=== PATIENT | female | born 1975 | race Caucasian/White ===

== ENCOUNTER 2017-11-13 20:43 | Emergency (ER) | payer OTHER ==
--- NOTE | 2017-11-13 20:49 | PDOC ---
History of Present Illness - General History Source: Patient Exam Limitations: No Limitations - History of Present Illness Initial Comments: 11/13/17 21:30 The patient is a 42 year old female with a significant PMH of endometriosis, diabetes, sinus tachycardia, hypertension, GERD and seasonal allergies who presents to the emergency department with a headache for 4 days. The patient report that she has been taking ibuprofen for her headache. She reports that her headache waxes and wanes. She reports that the last time she took medication was about 5 hours ago. The patient reports that she has associated neck pain and minimal nausea. The patient also reports a subjective fever. She denies any chest pain, shortness of breath, or dizziness. She denies any ever, chills, vomiting, diarrhea or constipation. She denies any urinary symptoms. The patient denies any other complaints. It is noted that the patient has a neuro appointment 1 month from now. PAST MEDICAL HISTORY: endometriosis, diabetes, sinus tachycardia, hypertension , GERD and seasonal allergies PAST SURGICAL HISTORY: sinus sx FAMILY HISTORY: no pertinent history SOCIAL HISTORY: Pt lives with family and is employed. MEDICATIONS: reviewed ALLERGIES: As per nursing notes General: (+) fevers. No chills, no weakness, no weight loss HEENT: No change in vision. No sore throat,. No ear pain CardioVascular: No chest pain or shortness of breath Respiratory:No cough, or wheezing. Gastrointestinal: no nausea, vomiting, diarrhea or constipation, No rectal bleeding Genitourinary: No dysuria, hematuria, or frequency Musculoskeletal: No joint or muscle pain or swelling Neurologic: (+) headache. No vertigo, dizziness or loss of consciousness Psychiatric: nor depression Skin: No rashes or easy bruising Endocrine: no increased thirst or abnormal weight change Allergic: no skin or latex allergy All other systems reviewed and normal General: (+) tenderness on percussion and palpation to head bilaterally. Well- nourished well-developed individual, no acute distress HEENT: Throat: Normal, tonsils normal, no erythema or exudate Neck: Supple, no meningeal signs, no lymphadenopathy Eyes::Pupils equal reactive and round, extraocular motion intact Chest: Nontender to palpation Cardiac: S1-S2 normal, regular rate and rhythm, no murmurs rubs or gallops Respiratory: Lungs clear to auscultation bilateral Extremities: Warm, dry, no cyanosis, clubbing, or edema Skin: No rashes Neuro: Alert and oriented x3, nonfocal exam, grossly intact, normal gait Psych: Normal mood and affect <Liyah Hayes - Last Filed: 11/13/17 21:30> - General History Source: Patient Exam Limitations: No Limitations - History of Present Illness Initial Comments: 11/13/17 21:00 A portion of this note was documented by scribe services under my direction. I have reviewed the details of the note, within reason, and agree with the documentation. The case summary and management plan written by me. Medical decision making: This is a 42-year-old female who comes in complaining of 4 days of frontal headache. Patient has history of sinusitis in the past with ALLERGIES. Patient said she's been taking a decongestant. Patient is also diabetic. Patient is complaining of some low-grade fevers as well. We'll obtain workup including CBC, comp, CAT scan sinuses and head. We'll reassess and follow-up. 21:45 Reassessment: Patient is refusing CAT scan of sinuses and head. Patient does not want the extra radiation. Patient understands that by refusing the CAT scan that a more serious condition such as a bleed or mass could be missed at this time. 22:15 Reassessment: Patient feels better post Reglan. Patient given Augmentin as she does have an elevated white count and symptoms are most consistent with an acute sinusitis. Patient given Tylenol for pain. Patient will be discharged home prescription for additional [facility] pharmacy. Patient told to follow-up with a neurologist if she is not better in 3 -4 days. <Maryse Martinez I - Last Filed: 11/13/17 22:18> - General Chief Complaint: Headache Stated Complaint: LOWE Time Seen by Provider: 11/13/17 20:48 Past History <Liyah Hayes - Last Filed: 11/13/17 21:30> - Past Medical History Cardiac Disorders: Yes (TACHYCARDIA) Diabetes: Yes GI Disorders: Yes (GERD) HTN: Yes - Immunization History Td Vaccination: Yes Immunization Up to Date: No - Suicide/Smoking/Psychosocial Hx Smoking Status: No Smoking History: Never smoked Number of Cigarettes Smoked Daily: 0 <Maryse Martinez I - Last Filed: 11/13/17 22:18> - Past Medical History Allergies/Adverse Reactions: Allergies Allergy/AdvReac Type Severity Reaction Status Date / Time aloe vera Allergy Verified 05/13/13 14:36 levofloxacin [From Levaquin] Allergy Verified 12/07/12 00:17 LEXASCAN Allergy Uncoded 05/13/13 14:36 Home Medications: Ambulatory Orders Cetirizine HCl [Zyrtec] 10 mg PO DAILY 12/07/12 Diltiazem [Cardizem -] 420 mg PO DAILY 12/07/12 Glipizide [Glipizide Xl] 10 mg PO QID 12/07/12 Insulin Detemir [Levemir Flexpen] 60 unit SQ DAILY 12/07/12 Losartan Potassium 100 mg PO DAILY 12/07/12 Megestrol Acetate [Megace -] 20 mg 12/07/12 Montelukast Na [Singulair -] 10 mg PO HS 12/07/12 Pantoprazole Sodium [Protonix] 40 mg PO DAILY 12/07/12 Cholecalciferol (Vitamin D3) [Vitamin D3] 400 unit PO 05/13/13 Amoxicillin/Potassium Clav [Augmentin 875-125 Tablet] 1 each PO BID #28 tablet 11/13/17 *Physical Exam - Vital Signs Last Vital Signs Temp Pulse Resp BP Pulse Ox 98.4 F 100 H 14 132/97 99 11/13/17 20:45 11/13/17 20:45 11/13/17 20:45 11/13/17 20:45 11/13/17 20:45 <Liyah Hayes - Last Filed: 11/13/17 21:30> ED Treatment Course - LABORATORY CBC & Chemistry Diagram: 11/13/17 21:20 - Medications Given in the ED: ED Medications Discontinued Medications Generic Name Dose Route Start Last Admin Trade Name Freq PRN Reason Stop Dose Admin Metoclopramide HCl 10 mg 11/13/17 21:06 11/13/17 21:10 Reglan Injection - IVPUSH 11/13/17 21:07 10 mg ONCE ONE Administration <Liyah Hayes - Last Filed: 11/13/17 21:30> - LABORATORY CBC & Chemistry Diagram: 11/13/17 21:20 11/13/17 21:30 <Maryse Martinez I - Last Filed: 11/13/17 22:18> *DC/Admit/Observation/Transfer - Attestations Scribe Attestion: 11/13/17 21:31 Documentation prepared by Liyah Hayes, acting as medical insurance clerk for Maryse Martinez MD. <Liyah Hayes - Last Filed: 11/13/17 21:30> - Discharge Dispostion Decision to Admit order: No <Maryse Martinez I - Last Filed: 11/13/17 22:18> Diagnosis at time of Disposition: Acute sinusitis Qualifiers: Sinusitis location: frontal Recurrence: not specified as recurrent Qualified Code(s): J01.10 - Acute frontal sinusitis, unspecified - Discharge Dispostion Disposition: HOME Condition at time of disposition: Good - Prescriptions Prescriptions: Amoxicillin/Potassium Clav [Augmentin 875-125 Tablet] 1 each PO BID #28 tablet - Patient Instructions Additional Instructions: Continue to use your decongestants and antihistamines for your seasonal ALLERGIES. Your blood work also indicated that your's somewhat dehydrated so it is important that you increase your fluids and stay well-hydrated. You had an elevated white count which is indicative of a sinus infection or some other infection most likely sinuses as this is where your pain is I started you on an antibiotic Augmentin U will need to continue it for at least another 2 weeks. You should be better within the next 3-4 days if you are not it is very important that you follow-up with a neurologist or return to the ER. Or if your symptoms are getting worse. Return to the emergency department immediately with ANY new, persistent or worsening symptoms. Continue any medications as previously prescribed by your physician. You should follow up with your primary doctor as soon as possible regarding today's emergency department visit. . Please make sure your doctor reviews the results of your emergency evaluation. Thank you for coming to the Emergency Department today for your care. It was a pleasure to see you today. Please note that your evaluation is INCOMPLETE until you follow-up with your doctor.
[2017-11-13 20:54] VITALS: BP 132/97; PULSE 100; TEMP 98.4; BMI 34.4
[2017-11-13] MEDS ORDERED: METOCLOPRAMIDE HCL INJECTION 10 MG/2 ML VIAL IVPUSH ONE (21:06)
[2017-11-13 21:40] LABS: BASO % 0.6 % (0-2.0); EOS % 1.1 % (0-4.5); HEMATOCRIT 46.9 % (32.4-45.2); LYMPH % 20.4 % (8-40); MCH 29.1 pg (25.7-33.7); MCHC 34.1 g/dl (32.0-36.0); MEAN CELL VOLUME 85.3 fl (80-96); MEAN PLT VOLUME 7.8 fl (7.5-11.1); NEUT % 71.9 % (42.8-82.8); PLATELET COUNT 345 K/MM3 (134-434); RDW 13.2 % (11.6-15.6); WHITE BLOOD COUNT 13.7 K/mm3 (4.0-10.8)
[2017-11-13] MEDS ORDERED: AMOX TR/POT CLAV 875MG/125MG TABLETS (FP) PO ONE (21:55)
[2017-11-13 21:56] LABS: ALBUMIN 4.5 g/dl (3.5-5.0); ALK PHOS 88 U/L (32-92); ANION GAP 10 (8-16); BLOOD UREA NITROGEN 23 mg/dl (7-18); CALCIUM 9.4 mg/dl (8.4-10.2); CHLORIDE 99 mmol/L (98-107); CO2 26 mmol/L (22-28); CREATININE 1.2 mg/dl (0.6-1.3); GLUCOSE,RANDOM 164 mg/dl (74-106); POTASSIUM 4.3 mmol/L (3.5-5.1); SGOT/AST 20 U/L (10-42); SGPT/ALT 27 U/L (10-40); SODIUM 135 mmol/L (136-145); TOT PROT 7.8 g/dl (6.4-8.3)
[2017-11-13] MEDS ORDERED: AMOX TR/POT CLAV 875MG/125MG TABLETS (FP) ONE (22:04)
[2017-11-13 22:05] LABS: BILIRUBIN,TOTAL 0.5 mg/dl (0.2-1.0)
== END 2017-11-13 22:29 | disposition home or self-care (01) ==
LOC: FER 20:43
PROC: 3E033GC Introduction of Other Therapeutic Substance into Peripheral Vein, Percutaneous Approach (ICD-10-PCS; principal; 2017-11-13)
DX: J01.10 Acute frontal sinusitis, unspecified (principal); I10 Essential (primary) hypertension; E11.9 Type 2 diabetes mellitus without complications; K21.9 Gastro-esophageal reflux disease without esophagitis; J30.1 Allergic rhinitis due to pollen; R00.0 Tachycardia, unspecified
CPT/HCPCS: 36415; 80053; 84703; 85025; 99282-25